=== PATIENT | male | born 1975 | race Caucasian/White ===

== ENCOUNTER 2024-04-06 18:21 | Emergency (ER) | payer OTHER, SELFPAY ==
[2024-04-06] VITALS (11 sets, daily range): BP systolic 145–162; BP diastolic 88–98; PULSE 64–84; RESP 10–20; TEMP 36.6; O2SAT 95–99
--- NOTE | ~2024-04-06 | CT_ITS ---
EXAMINATION: CT abdomen pelvis wo con DATE: 04/06/2024 20:48 INDICATION: flank pain TECHNIQUE: Computed tomography (CT) of the abdomen and pelvis was performed without intravenous contr ast. Automated exposure control and iterative reconstruction technique were employed. The dose-length product was 1102.42 mGy-cm. COMPARISON: None. FINDINGS: Lower thorax: Minimal dependent atelectasis and bibasilar scarring. Liver: Normal. Biliary/Gallbladder: Gallbladder is normal. No bile duct dilation. Pancreas: No mass or duct dilation. Spleen: Normal. Adrenals:No mass. Kidneys: Moderate left perinephric stranding and proximal ureteral stranding. 5 mm stone in the proxi mal right ureter. Simple right midpole cyst. Unremarkable left kidney. GI tract: No small or large bowel dilation. Normal appendix. Mesentery/Peritoneum: No ascites, mass, or free air. Retroperitoneum: No mass. Atherosclerotic abdominal aortic and/or arterial calcifications. Pelvis: Partially distended urinary bladder. Mild prostatomegaly. Soft Tissues: Soft tissues and body wall unremarkable. Bones: No acute osseous finding. Chronic bilateral L5 pars defects. IMPRESSION: 5 mm stone in the right proximal ureter causing moderate obstructive uropathy. Reviewed, dictated and finalized at location K.
[2024-04-06] MEDS: ONDANSETRON INJ 4 MG/2 ML VIAL IV PUSH (20:55)
[2024-04-06] MEDS: SODIUM CHLORIDE 0.9% IV 1,000 ML 150 ML IV CONT (20:55)
[2024-04-06 20:59] LABS: Basophils Percent Auto 0.2 % (0.2-1.2); Eosinophils Percent Auto 0.1 % (0-4.4); Hematocrit 44.8 % (42.0-52.0); Immature Granulocyte Absolute 0.02 K/mm3 (0.00-0.031); Immature Granulocyte Percent A 0.2 % (0-0.5); Lymphocytes Absolute Auto 1.33 K/mm3 (0.9-3.2); Lymphocytes Percent Auto 16.3 % (18.3-44.2); Mean Corpuscular HGB Conc 35.7 g/dl (32-36); Mean Corpuscular Hemoglobin 33.1 pg (26-34); Mean Corpuscular Volume 92.6 fl (80-100); Monocytes Absolute Auto 0.5 K/mm3 (0.1-0.6); Monocytes Percent Auto 6.4 % (2.6-8.5); Neutrophils Absolute Auto 6.3 K/mm3 (1.3-6.7); Neutrophils Percent Auto 76.8 % (45.5-73.1); Platelet Count Result 187 k/mm3 (150-375); Red Blood Count 4.84 M/mm3 (4.6-6.20); Red Cell Distribution Width 12.3 % (11.5-14.5); White Blood Count 8.2 K/mm3 (4.5-10.0)
[2024-04-06 21:09] LABS: Alanine Aminotransferase 69 U/L (6-50); Albumin Level 4.8 g/dL (3.5-5.1); Alkaline Phosphatase 97 U/L (38-126); Anion Gap 11 mmol/L (4-12); Aspartate Amino Transferase 41 U/L (17-59); Bilirubin,Total 0.8 mg/dL (0.2-1.3); Blood Urea Nitrogen 12 mg/dL (9-20); Calcium 9.6 mg/dL (8.4-10.2); Carbon Dioxide 24 mmol/L (22-30); Chloride 107 mmol/L (98-107); Estimated CRCL calculation 87 ml/min; Estimated Glomerular Filt Rate > 60; Glucose 89 mg/dL (65-110); Lipase 66 U/L (23-300); Potassium 3.6 mmol/L (3.4-5.0); Sodium 142 mmol/L (137-145)
[2024-04-06 21:16] LABS: Appearance Urine Clear (Clear); Bacteria Urine None Seen /hpf; Bilirubin Urine 1+ (Negative); Blood Urine 3+ (Negative); Color Urine Dark Yellow (Yellow); Glucose Urine UA Negative (Negative); Ketones Urine Trace mg/dL (Negative); Leukocyte Esterase Ur Trace LEU/UL (Negative); Nitrate Urine Negative (Negative); Non Pathogenic Casts 0-2; Protein Urine 2+ mg/dL (Negative); RBC Urine 51-100 /hpf (0-2); Squamous Epithelial Cell Urine None Seen /hpf (Few); WBC Urine 0-5 /hpf (0-3)
[2024-04-06 21:19] LABS: Specific Grav Ur 1.032 (1.001-1.035)
[2024-04-06 21:20] LABS: Add Urine Microscopic? YES
--- NOTE | 2024-04-06 21:23 | ED.ABDPAIN ---
HPI - Abdominal Pain General Chief Complaint: Abdominal Pain Stated Complaint: abd pain Time Seen by Provider: 04/06/24 20:30 Source: patient Mode of arrival: ambulatory Limitations: no limitations History of Present Illness HPI narrative: 48-year-old with a history of diabetes, kidney stones here with the complaints of sudden onset of lower abdominal pain mostly on the right side started few hours ago. Denies any vomiting. He states that he had noticed some blood in his urine. MD elicited complaint: abdominal pain Pertinent past history: kidney stones Onset (ago): hour(s) (4) Pain Consistency: constant Location: suprapubic Severity: moderate Quality: aching Migration to: no migration Exacerbating factors: nothing Relieving factors: nothing Associated symptoms: hematuria Related Data Allergies Allergy/AdvReac Type Severity Reaction Status Date / Time No Known Allergies Allergy Verified 04/06/24 20:41 Review of Systems Review of Systems: All systems reviewed & are unremarkable except as noted in HPI and below Constitutional: Constitutional: Reports no additional constitutional complaints Eyes: Eyes: Reports no additional eye complaints ENT: Reports system reviewed and no additional complaints, except as documented Cardiovascular: Cardiovascular: Reports no additional cardiovascular complaints Respiratory: Respiratory: Reports no additional respiratory complaints Gastrointestinal: Gastrointestinal: Reports as per HPI Musculoskeletal: Musculoskeletal: Reports no additional musculoskeletal complaints Integumentary/Breasts: Skin/Breast: Reports system reviewed and no additional complaints, except as docu Neurologic: Reports system reviewed and no additional complaints, except as documented Exam Narrative: GENERAL: Well-appearing, well-nourished, and in no acute distress. HEAD: Normocephalic, atraumatic. EYES: PERRLA and EOMI. ENT: Nares clear, no rhinorrhea or epistaxis. Mucous membranes moist. NECK: Supple. CHEST: Clear to auscultation. No respiratory distress. HEART: Regular rate and rhythm. No murmur heard. Normal peripheral pulses. ABDOMEN: Soft, nontender, nondistended, normal active bowel sounds. EXTREMITIES: Normal range of motion. No edema. SKIN: Warm, dry, no rash. NEURO: No focal deficits. Alert and oriented x3. PSYCH: Normal mood and affect. Course Course Emergency Course: Patient feeling much better after morphine. Informed him about his lab, CT findings recommended him to drink more fluids. Medications as prescribed follow-up with a urologist. He does feel comfortable going home Vital Signs Vital signs: Vital Signs Temperature 36.6 C 04/06/24 18:30 Pulse Rate 80 04/06/24 18:30 Respiratory Rate 20 04/06/24 18:30 Blood Pressure 151/94 H 04/06/24 18:30 Pulse Oximetry 97 04/06/24 18:30 Oxygen Delivery Room Air 04/06/24 18:30 Temperature 36.6 C 04/06/24 18:30 Pulse Rate 80 04/06/24 18:30 Respiratory Rate 20 04/06/24 18:30 Blood Pressure 151/94 H 04/06/24 18:30 Pulse Oximetry 97 04/06/24 18:30 Oxygen Delivery Room Air 04/06/24 18:30 MDM - Abdominal Pain Medical Records Attestation: I reviewed the patient's medical records. Lab Data Attestation: I reviewed the patient's lab results. 04/06/24 20:51 04/06/24 20:51 Labs: Lab Results 04/06/24 Range/Units 20:51 WBC 8.2 (4.5-10.0) K/mm3 RBC 4.84 (4.6-6.20) M/mm3 Hgb 16.0 (14.0-18.0) g/dL Hct 44.8 (42.0-52.0) % MCV 92.6 (80-100) fl MCH 33.1 (26-34) pg MCHC 35.7 (32-36) g/dl RDW 12.3 (11.5-14.5) % Plt Count 187 (150-375) k/mm3 MPV 12.0 H (7.4-10.4) fl Immature Gran % (Auto) 0.2 (0-0.5) % Neut % (Auto) 76.8 H (45.5-73.1) % Lymph % (Auto) 16.3 L (18.3-44.2) % Andrews % (Auto) 6.4 (2.6-8.5) % Eos % (Auto) 0.1 (0-4.4) % Baso % (Auto) 0.2 (0.2-1.2) % Lymph # (Auto) 1.33 (0.9-3.2) K/mm3 Andrews # (Auto)
== END 2024-04-06 21:48 | disposition home or self-care (01) ==
PROVIDERS: Emergency Provider Family Medicine
DX: N13.9 Obstructive and reflux uropathy, unspecified (principal); N20.1 Calculus of ureter; Z87.442 Personal history of urinary calculi
CPT/HCPCS: 36415; 74176; 80053; 81001; 83690; 85025; 96361; 96374; 99284; J2405; J7030

== ENCOUNTER 2024-05-04 15:39 | Outpatient (CLI) | payer OTHER, SELFPAY ==
--- NOTE | ~2024-05-04 | XR_ITS ---
EXAMINATION: XR abdomen/kub 1V DATE: 05/04/2024 15:54 INDICATION: Right ureteral stone TECHNIQUE: A supine view of the abdomen on 2 radiographs was obtained. COMPARISON: CT dated 04/06/2024 FINDINGS: Unchanged pattern of a few small phleboliths in the pelvis. There are also couple unchanged 3 mm ston es in the mid right kidney. No other urolithiasis identified. Specifically the stone previously noted at the proximal to mid right ureter is identified in this likely either passed or is obscured by the bones in the pelvis. Normal bowel gas pattern.. IMPRESSION: 1. Couple unchanged 3 mm stones in the mid right kidney. Previously seen stone in the right ureter is unable be identified. Reviewed, dictated and finalized at location A.
== END 2024-05-04 15:40 | disposition home or self-care (01) ==
LOC: ANHIMG 15:43
PROVIDERS: Visit Provider Urology
DX: N20.1 Calculus of ureter (principal); N20.0 Calculus of kidney
CPT/HCPCS: 74018

== ENCOUNTER 2024-05-05 13:22 | Outpatient (CLI) | payer OTHER, SELFPAY ==
--- NOTE | ~2024-05-05 | CT_ITS ---
Non-contrast CT scan of the Abdomen and Pelvis Clinical indication: Right ureteral stone Technique: 2.5 mm axial scans were obtained through the abdomen and pelvis without intravenous or or al contrast. Dose reduction technique was used on this scan by utilizing automated exposure control a nd iterative reconstruction technique. The dose-length product (DLP) was 427.65 mGy-cm. COMPARISON: 04/06/2024 Findings: Images through the lung bases reveal no abnormalities. Nonobstructing right renal stones measuring up to 4 mm in diameter. No left renal or left ureteral st one. No right ureteral stones seen. No hydronephrosis on either side. The liver, spleen, pancreas, gallbladder, and adrenals appear normal. There is no aortic aneurysm. There is no evidence of bowel obstruction. Small fat-containing abdominal hernia noted. Images through the pelvis were performed. There is no evidence of ascites or lymphadenopathy. Urinary bladder unremarkable. No pelvic mass seen. Bilateral L5 pars interarticularis defects are present. Impression: Nonobstructing right renal stones, as above. No ureteral stone or hydronephrosis on either side. Reviewed, dictated and finalized at [facility]. Impression: Nonobstructing right renal stones, as above. No ureteral stone or hydronephrosi s on either side.
== END 2024-05-05 13:23 | disposition home or self-care (01) ==
PROVIDERS: Visit Provider Urology
DX: N20.1 Calculus of ureter (principal)
CPT/HCPCS: 74176